=== PATIENT | female | born 1945 | race Caucasian/White ===

== ENCOUNTER 2016-12-29 16:27 | Outpatient (CLI) | payer MEDICARE ==
--- NOTE | 2016-12-30 08:03 | XRAY Report ---
CHEST, PA AND LATERAL: 12/29/2016 FINDINGS: Bony thorax demonstrates anterior spurring in the thoracic spine. Normal cardiac size is seen. Thoracic aorta is normal. Cewut-qn-[id number] size hiatal hernia is seen in the inferior aspect of the mediastinum. Lungs appear normal. IMPRESSION: [id number] SIZE HIATAL HERNIA WITHOUT OTHER ABNORMALITY. JOB #: [id number] EXT JOB #:[id number]
== END 2016-12-29 16:28 | disposition home or self-care (01) ==
LOC: DI 16:27
PROVIDERS: ATTEND Internal Medicine
DX: K44.9 Diaphragmatic hernia without obstruction or gangrene (principal); R05 Cough
CPT/HCPCS: 71020

== ENCOUNTER 2018-05-21 16:13 | Outpatient (CLI) | payer MEDICARE ==
--- NOTE | 2018-05-21 23:02 | XRAY Report ---
Reason: PALPITATIONS Procedure Date: 05/21/2018 Accession Number: [id number] / [id number] Procedure: XR - Chest 2 View X-Ray CPT Code: 64168 FULL RESULT: EXAM: CHEST RADIOGRAPHY EXAM DATE: 05/21/2018 04:26 PM. CLINICAL HISTORY: PALPITATIONS. COMPARISON: CHEST 2 VIEW PA/LAT 12/29/2016 4:46 PM. TECHNIQUE: 2 views. FINDINGS: Heart size is normal. Calcified plaques in the aortic arch. No consolidation, pleural effusion, or pneumothorax. Redemonstrated small/moderate hiatal hernia. Surgical clips project over the right upper abdominal quadrant. Focal degenerative changes of the midthoracic spine. IMPRESSION: No acute cardiopulmonary findings. RADIA
== END 2018-05-21 16:14 | disposition home or self-care (01) ==
LOC: DI 16:13
PROVIDERS: ATTEND Internal Medicine
DX: R00.2 Palpitations (principal)
CPT/HCPCS: 71046

== ENCOUNTER 2019-08-13 12:30 | Outpatient (CLI) | payer MEDICARE ==
--- NOTE | 2019-08-14 10:18 | Mammography Report ---
Reason: ROUTINE MAMMO Procedure Date: 08/13/2019 Accession Number: [id number] / [id number] Procedure: MGS - Screening Mammo Dig Bilat CPT Code: Final Report FULL RESULT: EXAM: Screening Mammo Dig Bilat DATE: 08/13/2019 1:12 PM CLINICAL HISTORY: The patient is an asymptomatic 74-year-old female. No personal nor family history of breast cancer. TECHNIQUE: (B) - Bilateral CC and MLO views were obtained. COMPARISON: 04/23/2016 and 12/26/2012 PARENCHYMAL PATTERN: (A) - The breasts demonstrate scattered fibroglandular densities bilaterally. FINDINGS: RIGHT BREAST: The pattern of glandular asymmetry is stable. Few benign calcifications noted. There are no suspicious masses, calcifications, or areas of distortion. LEFT BREAST: There may be developing asymmetry in the superior middle position; reference MLO view only. Recommend targeted diagnostic evaluation. The remainder the parenchymal pattern is stable. IMPRESSION: RIGHT BREAST: BI-RADS 2. Benign. LEFT BREAST: BI-RADS 0. Incomplete. RECOMMENDATION: Recommend targeted mammographic views and ultrasound, if indicated. BI-RADS CATEGORY: (0) - Incomplete Examination - need additional evaluation. STANDARD QUALIFYING STATEMENTS: 1. This examination was not reviewed with the aid of Computer-Aided Detection (CAD). 2. A negative or benign imaging report should not preclude biopsy if clinically suspicious findings are present. 3. Dense breasts may obscure an underlying neoplasm.
== END 2019-08-13 12:31 | disposition home or self-care (01) ==
LOC: DI.S 12:30
PROVIDERS: ATTEND Internal Medicine
DX: Z12.31 Encounter for screening mammogram for malignant neoplasm of breast (principal); R92.8 Other abnormal and inconclusive findings on diagnostic imaging of breast
CPT/HCPCS: 77067

== ENCOUNTER 2019-09-05 09:02 | Outpatient (CLI) | payer MEDICARE ==
--- NOTE | 2019-09-05 10:58 | Mammography Report ---
Reason: ABN MAMMOGRAM Procedure Date: 09/05/2019 Accession Number: [id number] / [id number] Procedure: RED - Diag Special Views Dig LT CPT Code: Final Report FULL RESULT: EXAM: Diag Special Views Dig LT DATE: 09/05/2019 10:19 AM CLINICAL HISTORY: Diagnostic examination. History of late childbearing. The patient is recalled from screening mammography for left breast asymmetry. TECHNIQUE: (L) - Left left breast CC, MLO and ML as well as spot MLO images are obtained. Focused left breast ultrasound is performed. COMPARISON: 08/13/2019 through 07/01/2003. PARENCHYMAL PATTERN: (A) - The breast(s) demonstrate(s) scattered fibroglandular densities. FINDINGS: The previously seen asymmetry on MLO projection in the upper breast 10 cm from the nipple is tomographically located to the upper outer breast on first MLO projection 3-D image 15, ML projection 3-D image 17 and second MLO 3-D projection image 16. The asymmetry is not confidently localized on CC projection on 2-D or 3-D images, probably benign. No calcification or associated architectural distortion is detected. Focused left breast ultrasound of the left breast upper outer quadrant 8 to 12 cm from the nipple reveals exclusively normal breast tissue. There are no suspicious masses, calcifications, or areas of distortion. IMPRESSION: Probably Benign. BI-RADS category 3. RECOMMENDATION: (6MOS) - Recommend 6 month follow-up exam. Left breast mammography with 3-D imaging. BI-RADS CATEGORY: (3) - Probably Benign. STANDARD QUALIFYING STATEMENTS: 1. This examination was not reviewed with the aid of Computer-Aided Detection (CAD). 2. A negative or benign imaging report should not preclude biopsy if clinically suspicious findings are present. 3. Dense breasts may obscure an underlying neoplasm. 4. This examination was reviewed with the aid of 3D breast imaging (tomosynthesis).
== END 2019-09-05 09:03 | disposition home or self-care (01) ==
LOC: DI 09:02
PROVIDERS: ATTEND Internal Medicine
DX: R92.8 Other abnormal and inconclusive findings on diagnostic imaging of breast (principal)
CPT/HCPCS: 76642

== ENCOUNTER 2021-01-01 14:10 | Outpatient (CLI) | payer MEDICARE | END 2021-01-01 14:11 | disposition home or self-care (01) | LOC: LAB 14:10 | PROVIDERS: ATTEND Ophthalmology | DX: Z01.812 Encounter for preprocedural laboratory examination (principal); H25.811 Combined forms of age-related cataract, right eye; Z20.822 Contact with and (suspected) exposure to COVID-19 ==

== ENCOUNTER 2021-01-07 07:19 | Day surgery (SDC) | payer MEDICARE ==
[~2021-01-07 07:19] MED LIST: KETOROLAC 0.45% OPHTH DROPS ONE; PROPARACAINE 0.5% OPHTH DROPS 15 ML ONE
[2021-01-07] MEDS ORDERED: LACTATED RINGERS 500 ML IV ONE ×2 (07:29→08:45)
[2021-01-07] MEDS ORDERED: PHENYLEPHRINE 2.5% OPHTH 2 ML DROPS RIGHTEYE ONE (07:50)
[2021-01-07] MEDS ORDERED: KETOROLAC 0.45% OPHTH DROPS RIGHTEYE ONE (07:50)
[2021-01-07] MEDS ORDERED: CYCLOPENTOLATE 2% OPHTH DROPS 2 ML RIGHTEYE ONE (07:50)
[2021-01-07] MEDS ORDERED: PROPARACAINE 0.5% OPHTH DROPS 15 ML RIGHTEYE ONE (07:50)
[2021-01-07] MEDS ORDERED: MIDAZOLAM 2 MG/2 ML VIAL ONE (08:07)
--- NOTE | 2021-01-07 08:08 | ANESTHESIA ---
Pre-Anesthesia VS, & Labs - Diagnosis right eye cataract - Procedure right CATIOL Vital Signs: Temp Pulse Resp BP Pulse Ox 36.2 C L 87 14 128/71 97 01/07/21 07:34 01/07/21 07:34 01/07/21 07:34 01/07/21 07:34 01/07/21 07:34 Height: 5 ft 8 in Weight (kg): 78 kg Body Mass Index: 26.1 BMI Classification: Overweight - NPO >8 hours - Is Patient ?: No - Lab Results Lab results reviewed: Yes Home Medications and Allergies Home Medications: Ambulatory Orders Gabapentin [Neurontin] 300 mg PO HS 01/06/21 Gabapentin [Neurontin] 300 mg PO HS 01/06/21 Allergies/Adverse Reactions: Allergies Allergy/AdvReac Type Severity Reaction Status Date / Time No Known Drug Allergies Allergy Verified 01/06/21 14:17 Anes History & Medical History - Anesthetic History Anesthesia Complications: reports: No previous complications Family history of Anesthesia Complications: Denies Family history of Malignant Hyperthermia: Denies - Medical History Cardiovascular: reports: None Pulmonary: reports: None Gastrointestinal: reports: None Urinary: reports: None Musculoskeletal: reports: Osteoarthritis Endocrine/Autoimmune: reports: None Skin: reports: None Smoking Status: Never smoker - Surgical History General: reports: Cholecystectomy Orthopedic: reports: Hip replacement Exam General: Alert, Oriented x3, Cooperative, No acute distress Dental: WNL Mouth Openin Fingerbreadth Neck Mobility: Normal Mallampati classification: II Plan Anesthesia Type: MAC Consent for Procedure(s) Verified and Reviewed: Yes Code Status: Attempt Resuscitation ASA classification: 2-Mild systemic disease Is this case an emergency?: No
[2021-01-07] MEDS ORDERED: PROPARACAINE 0.5% OPHTH DROPS 15 ML EACHEYE ONE (08:30)
[2021-01-07] MEDS ORDERED: VANCOMYCIN OPHTHALMI 8MG/0.8ML 8 MG/0.8 ML SYRINGE IO ONE (08:30)
[2021-01-07] MEDS ORDERED: TRIAMCIN/MOXIFLOX OPHTHALMIC 0.6 ML VIAL IO ONE (08:30)
[2021-01-07] MEDS ORDERED: BRIMONIDINE 0.2% OPHTH DROPS 5 ML OPTH ONE (08:30)
[2021-01-07] MEDS ORDERED: TIMOLOL 0.5% OPHTH DROPS OPTH ONE (08:30)
[2021-01-07] MEDS ORDERED: BSS/LIDOCAINE/EPINEPHRINE 1 ML SYRINGE IO ONE (08:30)
[2021-01-07] MEDS ORDERED: EPINEPHrine 1 MG/ML AMP IR ONE (08:30)
[2021-01-07] MEDS ORDERED: CHONDR SULF/HYALURONATE SYRINGE IO ONE (08:30)
[2021-01-07 09:10] VITALS: BP 104/55
--- NOTE | 2021-01-07 09:56 | OPERATIVE REPORT ---
Operative Report - Other Other Information/Narrative: Date of Surgery: 01/07/21 Preop Dx: Visually significant cataract right eye. This was the first cataract surgery. Postop Dx: Same Procedure: Phacoemulsification with posterior chamber toric intraocular lens implant right eye Surgeon: Dr. Corky Hendricks Anesthesia: Monitored anesthesia care Complications: None Operative Indications: This is a 76-year-old F with progressive vision loss in the right eye due to 2+ nuclear sclerotic, 2+ cortical, trace posterior sub capsular, and vacuolar cataract. Best corrected visual acuity was 20/25 with glare to 20/200 vision in the right eye. Indications for surgery were: - Difficulty seeing words on a computer screen - Difficulty reading - Difficulty seeing words, closed captions, or game scores on TV - Difficulty seeing street signs - Difficulty driving at night because of headlights from other vehicles The patient was consented at length concerning the risks and benefits of cataract surgery after which the patient expressed a desire to proceed with surgery. Operative Procedure: The patients cornea was marked in the pre-surgical area to indicate the axis for the toric intraocular lens. The patient was taken into OR#3 and placed under monitored anesthesia care. A surgical time-out was conducted confirming correct patient, correct procedure, and correct surgical site. The patient was given topical anesthesia and then prepped and draped in the usual sterile fashion. The eye was entered at the 6 and 3 oclock positions. Intracameral Shugarcaine was injected into the anterior chamber followed by a dispersive viscoelastic. A continuous-tear curvilinear capsulorhexis was performed. The nucleus was hydrodissected and phacoemulsified. The cortex was evacuated using automated infusion and aspiration. A cohesive viscoelastic was injected into the capsular bag and a 17.5 diopter toric intraocular lens was inserted into the bag and rotated to axis 024. Infusion and aspiration were used to evacuate the viscoelastic materials from the eye and the IOL was verified to remain on axis. The wounds were hydrated and the eye inflated to physiologic pressure using balanced salt solution. Approximately 0.25ml of a mixture of triamcinolone and moxifloxacin was injected trans- sclerally into the vitreous in the inferotemporal quadrant using a 30 gauge dulce morro. An additional 0.55ml of a mixture of triamcinolone, moxifloxacin, and vancomycin was injected subconjunctivally in the superior quadrant for infection and inflammation prophylaxis. Wound integrity was checked with Weck-Concepción sponges and the IOL axis was once again verified to be on the correct axis. The patient was taken from the operating room in good condition and given post-op instructions.
--- NOTE | 2021-01-07 13:35 | ANESTHESIA POST OP EVALUATION ---
Anesthesia Post Eval - Post Anesthesia Eval Vitals: Last Vital Signs Temp 36.3 C L 01/07/21 09:02 Pulse 86 01/07/21 09:08 Resp 16 01/07/21 09:08 BP 104/55 L 01/07/21 09:08 Pulse Ox 96 01/07/21 09:08 CV Function Including HR & BP: Stable Pain Control: Satisfactory Nausea & Vomiting: Negative Mental Status: Baseline Respiratory Status: Airway Patent Hydration Status: Satisfactory Anesthesia Complications: None
== END 2021-01-07 07:20 | disposition home or self-care (01) ==
LOC: SDS 07:19
PROVIDERS: ATTEND Ophthalmology
DX: H25.811 Combined forms of age-related cataract, right eye (principal); E66.3 Overweight; Z68.26 Body mass index [BMI] 26.0-26.9, adult
CPT/HCPCS: 66984; A9270; J3490; J7120; V2632

== ENCOUNTER 2021-04-08 08:19 | Day surgery (SDC) | payer MEDICARE ==
[~2021-04-08 08:19] MED LIST changes: +BRIMONIDINE 0.2% OPHTH DROPS 5 ML ONE; +CYCLOPENTOLATE 1% OPHTH DROPS 2 ML ONE; +EPINEPHrine 1 MG/ML AMP ONE; +PHENYLEPHRINE 2.5% OPHTH 2 ML DROPS ONE; +TIMOLOL 0.5% OPHTH DROPS ONE; +TRIAMCIN/MOXIFLOX OPHTHALMIC 0.6 ML VIAL IO ONE; +VANCOMYCIN OPHTHALMI 8MG/0.8ML 8 MG/0.8 ML SYRINGE IO ONE
[2021-04-08] MEDS ORDERED: LACTATED RINGERS 1,000 ML IV ONE ×2 (08:32→09:55)
--- NOTE | 2021-04-08 09:06 | ANESTHESIA ---
Pre-Anesthesia VS, & Labs - Diagnosis left eye cataract - Procedure Left CATIOL Vital Signs: Temp Pulse Resp BP Pulse Ox 36.3 C L 85 14 126/76 97 04/08/21 08:37 04/08/21 08:37 04/08/21 08:37 04/08/21 08:37 04/08/21 08:37 Height: 5 ft 8 in Weight (kg): 71.8 kg Body Mass Index: 24.0 BMI Classification: Healthy weight - NPO >8 hours - Is Patient ?: No - Lab Results Lab results reviewed: Yes Home Medications and Allergies Allergies/Adverse Reactions: Allergies Allergy/AdvReac Type Severity Reaction Status Date / Time No Known Drug Allergies Allergy Verified 01/06/21 14:17 Anes History & Medical History - Anesthetic History Anesthesia Complications: reports: No previous complications Family history of Anesthesia Complications: Denies Family history of Malignant Hyperthermia: Denies - Medical History Cardiovascular: reports: None Pulmonary: reports: None Gastrointestinal: reports: None Urinary: reports: None Musculoskeletal: reports: None Endocrine/Autoimmune: reports: None Skin: reports: None Smoking Status: Never smoker - Surgical History General: reports: Cholecystectomy Eyes Ears Nose Throat (EENT): reports: Cataracts Exam General: Alert, Oriented x3, Cooperative, No acute distress Dental: WNL Mouth Openin Fingerbreadth Neck Mobility: Normal Mallampati classification: II Respiratory: Lungs clear, Normal breath sounds, No respiratory distress, No accessory muscle use Cardiovascular: Regular rate, Normal S1, Normal S2, No murmurs Plan Anesthesia Type: MAC Consent for Procedure(s) Verified and Reviewed: Yes Code Status: Attempt Resuscitation ASA classification: 2-Mild systemic disease Is this case an emergency?: No
[2021-04-08] MEDS ORDERED: TIMOLOL 0.5% OPHTH DROPS OPTH ONE (09:29)
[2021-04-08] MEDS ORDERED: BRIMONIDINE 0.2% OPHTH DROPS 5 ML OPTH ONE (09:29)
[2021-04-08] MEDS ORDERED: EPINEPHrine 1 MG/ML AMP IR ONE (09:29)
[2021-04-08] MEDS ORDERED: CHONDR SULF/HYALURONATE SYRINGE IO ONE (09:29)
[2021-04-08] MEDS ORDERED: MIDAZOLAM 2 MG/2 ML VIAL ONE (09:29)
[2021-04-08] MEDS ORDERED: TRIAMCIN/MOXIFLOX OPHTHALMIC 0.6 ML VIAL IO ONE (09:30)
[2021-04-08] MEDS ORDERED: BSS/LIDOCAINE/EPINEPHRINE 1 ML SYRINGE IO ONE (09:30)
[2021-04-08] MEDS ORDERED: PROPARACAINE 0.5% OPHTH DROPS 15 ML EACHEYE ONE (09:30)
[2021-04-08] MEDS ORDERED: VANCOMYCIN OPHTHALMI 8MG/0.8ML 8 MG/0.8 ML SYRINGE IO ONE (09:30)
--- NOTE | 2021-04-08 10:02 | ANESTHESIA POST OP EVALUATION ---
Anesthesia Post Eval - Post Anesthesia Eval Vitals: Last Vital Signs Temp 36.3 C L 04/08/21 09:54 Pulse 84 04/08/21 09:54 Resp 24 04/08/21 09:54 BP 115/63 04/08/21 09:54 Pulse Ox 96 04/08/21 09:54 CV Function Including HR & BP: Stable Pain Control: Satisfactory Nausea & Vomiting: Negative Mental Status: Baseline Respiratory Status: Airway Patent Hydration Status: Satisfactory Anesthesia Complications: None
--- NOTE | 2021-04-08 10:07 | OPERATIVE REPORT ---
Operative Report - Other Other Information/Narrative: Date of Surgery: 04/08/21 Preop Dx: Visually significant cataract left eye. Cataract surgery was performed in the right eye on . Postop Dx: Same Procedure: Phacoemulsification with posterior chamber toric intraocular lens implant left eye Surgeon: Dr. Corky Hendricks Anesthesia: Monitored anesthesia care Complications: None Operative Indications: This is a 76-year-old F with progressive vision loss in the left eye due to 2+ nuclear sclerotic, 2+ cortical, and vacuolar cataract. Best corrected visual acuity was 20/25 with glare to 20/630 vision in the left eye. Indications for surgery were: - Difficulty seeing words on a computer screen - Difficulty seeing words, closed captions, or game scores on TV - Difficulty seeing street signs - Difficulty driving in low light or at night - Difficulty driving at night because of headlights from other vehicles - Difficulty with glare or bright lights in any situation The patient was consented at length concerning the risks and benefits of cataract surgery after which the patient expressed a desire to proceed with surgery. Operative Procedure: The patients cornea was marked in the pre-surgical area to indicate the axis for the toric intraocular lens. The patient was taken into OR#3 and placed under monitored anesthesia care. A surgical time-out was conducted confirming correct patient, correct procedure, and correct surgical site. The patient was given topical anesthesia and then prepped and draped in the usual sterile fashion. The eye was entered at the 6 and 3 oclock positions. Intracameral Shugarcaine was injected into the anterior chamber followed by a dispersive viscoelastic. A continuous-tear curvilinear capsulorhexis was performed. The nucleus was hydrodissected and phacoemulsified. The cortex was evacuated using automated infusion and aspiration. A cohesive viscoelastic was injected into the capsular bag and a 21.5 diopter toric intraocular lens was inserted into the bag and rotated to axis 148. Infusion and aspiration were used to evacuate the viscoelastic materials from the eye and the IOL was verified to remain on axis. The wounds were hydrated and the eye inflated to physiologic pressure using balanced salt solution. Approximately 0.25ml of a mixture of triamcinolone and moxifloxacin was injected trans-scleral ly into the vitreous in the inferotemporal quadrant using a 30 gauge cannula. An additional 0.55ml of a mixture of triamcinolone, moxifloxacin, and vancomycin was injected subconjunctivally in the superior quadrant for infection and inflammation prophylaxis. Wound integrity was checked with Weck-Concepción sponges and the IOL axis was once again verified to be on the correct axis. The patient was taken from the operating room in good condition and given post-op instructions.
[2021-04-08 10:08] VITALS: BP 111/59
== END 2021-04-08 08:20 | disposition home or self-care (01) ==
LOC: SDS 08:19
PROVIDERS: ATTEND Ophthalmology
DX: H25.812 Combined forms of age-related cataract, left eye (principal); Z98.41 Cataract extraction status, right eye
CPT/HCPCS: 66984; A9270; J3490; J7120; V2632; V2787